=== PATIENT | female | born 1935 | race Two or more races ===

== ENCOUNTER 2020-11-14 19:02 | Inpatient (IN) | payer OTHER ==
[~2020-11-14] VITALS: Ht 162.6 cm; Wt 49.0 kg
[2020-11-14] MEDS ORDERED: SODIUM CHLORIDE 0.9% 1,000 ML IV ONE (20:00)
[2020-11-14 20:54] LABS: MEAN CORPUSCULAR HEMOGLOBIN 35.5 pg (28.0-32.0); MEAN CORPUSCULAR VOLUME 118.4 fL (81.0-99.0); MEAN PLATELET VOLUME 10.1 fl (7.4-10.4); PLATELET 184 x1000/uL (130-400); RED BLOOD CELL COUNT 0.92 mill/uL (4.2-5.4); RED CELL DISTRIBUTION WIDTH 22.4 % (11.6-14.6)
[2020-11-14 21:01] LABS: CHLORIDE 109 mEq/L (98-107)
[2020-11-14 21:08] LABS: HEMATOCRIT. 10.9 % (36.0-48.0); HEMOGLOBIN. 3.3 g/dL (12.0-16.0)
[2020-11-14 21:38] LABS: NUCLEATED RED BLOOD CELLS 4 /100 WBC
[2020-11-14 21:39] LABS: PLATELET ESTIMATE NORMAL
[2020-11-14 22:35] LABS: CLARITY URINE CLOUDY (CLEAR); COLOR URINE YELLOW (YELLOW); KETONES URINE NEGATIVE (NEGATIVE); LEUKOCYTE ESTERASE URINE NEGATIVE (NEGATIVE); NITRITE URINE NEGATIVE (NEGATIVE); OCCULT BLOOD URINE NEGATIVE (NEGATIVE); PROTEIN URINE 1+ (NEGATIVE); SPECIFIC GRAVITY URINE 1.019 (1.005-1.030)
[2020-11-15] MEDS ORDERED: CEFTRIAXONE 1 G PREMIX 50 ML IV ONE (00:45)
[2020-11-15] MEDS ORDERED: DEXTROSE 50% WATER 50ML SYRINGE IV PRN (09:15)
[2020-11-15] MEDS ORDERED: ONDANSETRON HCL 4MG/2ML INJ IV PRN (09:15)
[2020-11-15] MEDS ORDERED: ACETAMINOPHEN 325MG TABLET PO PRN (09:15)
[2020-11-15] MEDS ORDERED: PANTOPRAZOLE SODIUM 40 MG/VIAL IV SCH (09:30)
[2020-11-15] MEDS: INSULIN LISPRO 100 UNITS/ML SUBCUT SCH ×4 (10:01→21:36)
[2020-11-15] MEDS: SODIUM CHLORIDE 0.45% 1,000 ML IV SCH (10:07)
[2020-11-15 12:39] LABS: HEMATOCRIT 14.8 % (36.0-48.0)
[2020-11-15] MEDS: BLOOD SUGAR DIAGNOSTIC STRIP TEST SCH ×3 (13:07→21:36)
[2020-11-15] MEDS ORDERED: INSULIN GLARGINE UD 100 UNITS/ML SYR SUBCUT NR (14:15)
[2020-11-15 16:28] LABS: INR 1.3; PROTHROMBIN TIME 13.5 sec (9.6-11.0)
[2020-11-15] MEDS: PANTOPRAZOLE SODIUM 40 MG/VIAL IV SCH (21:36)
[2020-11-15] MEDS ORDERED: INSULIN GLARGINE UD 100 UNITS/ML SYR SUBCUT SCH (22:00)
[2020-11-16] VITALS (15 sets, daily range): BP systolic 127–158; BP diastolic 52–78
[2020-11-16] MEDS ORDERED: CEFTRIAXONE 1 G PREMIX 50 ML IV SCH (01:15)
[2020-11-16 01:17] LABS: HEMATOCRIT 28.6 % (36.0-48.0); HEMOGLOBIN 9.4 g/dL (12.0-16.0)
[2020-11-16] MEDS: CEFTRIAXONE 1,000 MG in DEXTROSE 5% WATER 50 ML IV SCH (01:22)
[2020-11-16] MEDS: SODIUM CHLORIDE 0.45% 1,000 ML IV SCH (04:25)
[2020-11-16 06:24] LABS: INR 1.3; PROTHROMBIN TIME 13.3 sec (9.6-11.0)
[2020-11-16 06:36] LABS: HEMATOCRIT. 21.6 % (36.0-48.0); HEMOGLOBIN. 7.5 g/dL (12.0-16.0); MEAN CORPUSCULAR HEMOGLOBIN 32.3 pg (28.0-32.0); MEAN CORPUSCULAR VOLUME 93.6 fL (81.0-99.0); MEAN PLATELET VOLUME 9.6 fl (7.4-10.4); PLATELET 123 x1000/uL (130-400); RED BLOOD CELL COUNT 2.31 mill/uL (4.2-5.4); RED CELL DISTRIBUTION WIDTH 17.7 % (11.6-14.6)
[2020-11-16 06:48] LABS: FOLIC ACID (FOLATE) SERUM 6.5 ng/mL (>5.38)
[2020-11-16] MEDS: INSULIN LISPRO 100 UNITS/ML SUBCUT SCH ×3 (08:00→17:42)
[2020-11-16] MEDS: BLOOD SUGAR DIAGNOSTIC STRIP TEST SCH ×4 (08:28→20:56)
[2020-11-16] MEDS: PANTOPRAZOLE SODIUM 40 MG/VIAL IV SCH ×2 (08:41→20:55)
[2020-11-16 14:27] LABS: NUCLEATED RED BLOOD CELLS 7 /100 WBC
[2020-11-16 14:28] LABS: PLATELET ESTIMATE SLIGHTLY DECREASED
[2020-11-16 18:07] LABS: HEMATOCRIT 29.3 % (36.0-48.0); HEMOGLOBIN 9.9 g/dL (12.0-16.0)
[2020-11-17] VITALS (12 sets, daily range): BP systolic 101–161; BP diastolic 40–82
[2020-11-17] MEDS: INSULIN LISPRO 100 UNITS/ML SUBCUT SCH ×5 (00:26→21:00)
[2020-11-17] MEDS: CEFTRIAXONE 1,000 MG in DEXTROSE 5% WATER 50 ML IV SCH (04:31)
[2020-11-17] MEDS: SODIUM CHLORIDE 0.45% 1,000 ML IV SCH (04:32)
[2020-11-17 06:45] LABS: CHLORIDE 113 mEq/L (98-107)
[2020-11-17 06:57] LABS: HEMATOCRIT. 26.4 % (36.0-48.0); HEMOGLOBIN. 9.2 g/dL (12.0-16.0); MEAN CORPUSCULAR HEMOGLOBIN 32.1 pg (28.0-32.0); MEAN CORPUSCULAR VOLUME 92.1 fL (81.0-99.0); MEAN PLATELET VOLUME 9.6 fl (7.4-10.4); PLATELET 105 x1000/uL (130-400); RED BLOOD CELL COUNT 2.87 mill/uL (4.2-5.4); RED CELL DISTRIBUTION WIDTH 17.1 % (11.6-14.6)
[2020-11-17] MEDS: BLOOD SUGAR DIAGNOSTIC STRIP TEST SCH ×4 (07:30→21:03)
[2020-11-17] MEDS: PANTOPRAZOLE SODIUM 40 MG/VIAL IV SCH (09:28)
[2020-11-17 10:32] LABS: NUCLEATED RED BLOOD CELLS 4 /100 WBC; PLATELET ESTIMATE DECREASED
[2020-11-17] MEDS ORDERED: MIDAZOLAM HCL 5 MG/5 ML VIAL ONE (16:17)
[2020-11-17] MEDS ORDERED: FENTANYL CITRATE/PF 50MCG/ML 2ML VIAL ONE (16:18)
[2020-11-17] MEDS ORDERED: MIDAZOLAM HCL 5 MG/5 ML VIAL IV PRN (16:35)
[2020-11-17] MEDS ORDERED: FENTANYL CITRATE/PF 50MCG/ML 2ML VIAL IV PRN (16:36)
[2020-11-17] MEDS: SUCRALFATE 1 G/10 ML UDC PO SCH ×2 (17:30→21:03)
[2020-11-18] VITALS (12 sets, daily range): BP systolic 115–149; BP diastolic 36–76
[2020-11-18] MEDS: SODIUM CHLORIDE 0.45% 1,000 ML IV SCH ×2 (02:11→20:15)
[2020-11-18] MEDS: CEFTRIAXONE 1,000 MG in DEXTROSE 5% WATER 50 ML IV SCH (02:11)
[2020-11-18] MEDS: INSULIN LISPRO 100 UNITS/ML SUBCUT SCH ×4 (08:00→20:16)
[2020-11-18] MEDS: BLOOD SUGAR DIAGNOSTIC STRIP TEST SCH ×4 (08:05→20:17)
[2020-11-18] MEDS: SUCRALFATE 1 G/10 ML UDC PO SCH ×4 (09:09→20:15)
[2020-11-19] VITALS: BP 140/59
[2020-11-19] MEDS: CEFTRIAXONE 1,000 MG in DEXTROSE 5% WATER 50 ML IV SCH (01:42)
[2020-11-19 02:00] VITALS: BP 148/64
[2020-11-19 04:00] VITALS: BP 129/77
[2020-11-19 06:00] VITALS: BP 161/127
[2020-11-19] MEDS: SUCRALFATE 1 G/10 ML UDC PO SCH (06:38)
[2020-11-19] MEDS: INSULIN LISPRO 100 UNITS/ML SUBCUT SCH (07:57)
[2020-11-19] MEDS: BLOOD SUGAR DIAGNOSTIC STRIP TEST SCH (07:57)
[2020-11-19 08:00] VITALS: BP 142/64
[2020-11-19 08:01] VITALS: BP 142/64
== END 2020-11-19 17:09 | disposition home or self-care (01) | DRG 690 ==
LOC: ER 19:02 → 5EST 11-15 00:39 → ENRESERV 11-15 08:12 → CANRESERV 11-15 08:12 → EDBEDREQSVC 11-15 09:23 → ENRESERV 11-15 22:45 → 5EST 11-16 17:04
PROVIDERS: ADMIT Internal Medicine; ATTEND Internal Medicine
PROC: 30243N1 Transfusion of Nonautologous Red Blood Cells into Central Vein, Percutaneous Approach (ICD-10-PCS; principal; 2020-11-14)
PROC: 0DB48ZX Excision of Esophagogastric Junction, Via Natural or Artificial Opening Endoscopic, Diagnostic (ICD-10-PCS; 2020-11-17)
DX: C92.00 Acute myeloblastic leukemia, not having achieved remission (principal); N17.9 Acute kidney failure, unspecified; D53.9 Nutritional anemia, unspecified; E44.1 Mild protein-calorie malnutrition; E87.8 Other disorders of electrolyte and fluid balance, not elsewhere classified; F02.80 Dementia in other diseases classified elsewhere, unspecified severity, without behavioral disturbance, psychotic disturbance, mood disturbance, and anxiety; I10 Essential (primary) hypertension; G30.9 Alzheimer's disease, unspecified; E11.65 Type 2 diabetes mellitus with hyperglycemia; I67.82 Cerebral ischemia; Z20.822 Contact with and (suspected) exposure to COVID-19; Z68.1 Body mass index [BMI] 19.9 or less, adult; Z87.11 Personal history of peptic ulcer disease
CPT/HCPCS: 36415; 71045; 80048; 80053; 81003; 82270; 82607; 82728; 82746; 82962; 83540; 83550; 83615; 83880; 84443; 84484; 85014; 85018; 85025; 85044; 86850; 86900; 86920; 88305; 93005; 96372; 96374; 96375; 97162; 97530; 99285; C9113; J0696; J1815; J2250; J3010; J7030; J7060; P9016